=== PATIENT | male | born 2000 | race Caucasian/White ===

== ENCOUNTER 2021-01-09 12:03 | Emergency (ER) | payer BC, SELFPAY ==
--- NOTE | ~2021-01-09 | CT_ITS ---
EXAMINATION: CT abdomen pelvis w con DATE: 01/09/2021 15:38 INDICATION: Appendicitis. Nausea and vomiting. TECHNIQUE: Computed tomography (CT) of the abdomen and pelvis was performed with 100 mL Omnipaque 350 intravenous contrast. Automated exposure control and iterative reconstruction technique were employe d. The dose-length product was 577.96 mGy-cm. COMPARISON: None. FINDINGS: The visualized portions of the lung bases demonstrate minimal atelectasis. No pleural effus ion. The heart size is normal. No pericardial effusion. The liver, gallbladder, spleen, pancreas, adr enal glands, and kidneys are normal. There are no dilated loops of bowel. The appendix is normal. The re are no pathologically enlarged lymph nodes. There is no free intraperitoneal fluid. The bones are unremarkable. IMPRESSION: 1. Normal appendix. Reviewed, dictated and finalized at location A. [employer] IMPRESSION: 1. Normal appendix.
[2021-01-09 12:13] VITALS: BP 150/88; PULSE 87; RESP 17; TEMP 36.7; O2SAT 98
[2021-01-09] MEDS: SODIUM CHLORIDE 0.9% IV 1,000 ML 999 ML IV CONT (13:29)
[2021-01-09] MEDS: FAMOTIDINE 20 MG/2 ML VIAL IV PUSH (13:32)
[2021-01-09 13:46] LABS: Basophils Absolute Auto 0.1 K/mm3 (0.0-0.1); Basophils Percent Auto 0.9 % (0.2-1.2); Eosinophils Absolute Auto 0.1 K/mm3 (0-0.3); Hematocrit 51.4 % (42.0-52.0); Hemoglobin 17.7 g/dL (14.0-18.0); Immature Granulocyte Absolute 0.06 K/mm3 (0.00-0.031); Immature Granulocyte Percent A 0.7 % (0-0.5); Lymphocytes Absolute Auto 1.09 K/mm3 (0.9-3.2); Mean Corpuscular HGB Conc 34.4 g/dl (32-36); Mean Corpuscular Hemoglobin 29.4 pg (26-34); Mean Corpuscular Volume 85.4 fl (80-100); Mean Platelet Volume 10.8 fl (7.4-10.4); Monocytes Absolute Auto 0.8 K/mm3 (0.1-0.6); Monocytes Percent Auto 8.3 % (2.6-8.5); Neutrophils Percent Auto 77.1 % (45.5-73.1); Platelet Count Result 297 k/mm3 (150-375); Red Blood Count 6.02 M/mm3 (4.6-6.20); Red Cell Distribution Width 12.4 % (11.5-14.5); White Blood Count 9.1 K/mm3 (4.5-10.0)
[2021-01-09 14:00] LABS: Alanine Aminotransferase 100 U/L (4-50); Albumin Level 5.2 g/dL (3.5-5.1); Alkaline Phosphatase 105 U/L (38-126); Anion Gap 11 mmol/L (8-16); Aspartate Amino Transferase 59 U/L (17-59); Bilirubin,Total 1.2 mg/dL (0.2-1.3); Blood Urea Nitrogen 16 mg/dL (9-20); Calcium 10.2 mg/dL (8.4-10.2); Carbon Dioxide 27 mmol/L (22-30); Chloride 100 mmol/L (98-107); Estimated CRCL calculation 109 ml/min; Estimated Glomerular Filt Rate > 60; Glucose 86 mg/dL (75-110); Lipase 82 U/L (23-300); Potassium 3.5 mmol/L (3.4-5.0); Sodium 138 mmol/L (137-145)
--- NOTE | 2021-01-09 14:27 | ED.GENADULT ---
HPI - General Adult General Chief complaint: Nausea/Vomiting/Diarrhea Stated complaint: nausea/vomiting Time Seen by Provider: 01/09/21 12:48 Source: patient Mode of arrival: ambulatory Limitations: no limitations History of Present Illness HPI narrative: Patient is a 20-year-old male who presents to emergency department for evaluation of nausea and vomiting for the last 3 days patient notes that whenever he eats he experiences vomiting patient notes that he is able to tolerate liquids at this time patient currently in the room in no distress denying any pain denies similar occurrence in the past patient denies any sick contacts patient Related Data Allergies Allergy/AdvReac Type Severity Reaction Status Date / Time No Known Allergies Allergy Verified 01/09/21 12:04 Review of Systems Review of Systems: All systems reviewed & are unremarkable except as noted in HPI and below PMFSH Social History Social History Gender identity (if verbalized by the patient): Male Exam Narrative: Exam Narrative: GENERAL: Well-appearing, well-nourished, and in no acute distress. HEAD: Normocephalic, atraumatic. EYES: PERRLA and EOMI. ENT: Nares clear, no rhinorrhea or epistaxis. Mucous membranes moist. CHEST: Clear to auscultation. No respiratory distress. No wheezes rales or rhonchi HEART: Regular rate and rhythm. No murmur heard. Normal peripheral pulses. ABDOMEN: Soft, nontender, nondistended EXTREMITIES: Normal range of motion. No edema. SKIN: Warm, dry, no rash. NEURO: No focal deficits. Alert and oriented x3. PSYCH: Normal mood and affect. Course Course Emergency Course: Patient presented with vomiting and nausea for the last several days no high risk changes in the imaging or blood work patient tolerating p.o. intake nontender abdominal exam ABCs and vital signs intact and stable will be discharged with outpatient follow-up patient agrees with this plan Vital Signs Vital signs: Vital Signs Temperature 98.1 F 01/09/21 12:13 Pulse Rate 87 01/09/21 12:13 Respiratory Rate 17 01/09/21 12:13 Blood Pressure 150/88 H 01/09/21 12:13 Pulse Oximetry 98 01/09/21 12:13 Temperature 98.1 F 01/09/21 12:13 Pulse Rate 87 01/09/21 12:13 Respiratory Rate 17 01/09/21 12:13 Blood Pressure 150/88 H 01/09/21 12:13 Pulse Oximetry 98 01/09/21 12:13 Medical Decision Making MDM Narrative Medical decision making narrative: Patient afebrile nontoxic-appearing no distress presented with nausea and vomiting evaluated resting comfortably hydrated medicated tolerating p.o. intake nontender abdominal exam will be discharged home with outpatient follow-up given reasons to return Vital Signs Vital Signs: Vital Signs Temperature 98.1 F 01/09/21 12:13 Pulse Rate 87 01/09/21 12:13 Respiratory Rate 17 01/09/21 12:13 Blood Pressure 150/88 H 01/09/21 12:13 Pulse Oximetry 98 01/09/21 12:13 Temperature 98.1 F 01/09/21 12:13 Pulse Rate 87 01/09/21 12:13 Respiratory Rate 17 01/09/21 12:13 Blood Pressure 150/88 H 01/09/21 12:13 Pulse Oximetry 98 01/09/21 12:13 Lab Data Result diagrams: 01/09/21 13:34 01/09/21 13:34 Labs: Lab Results 01/09/21 01/09/21 Range/Units 13:34 13:34 WBC 9.1 (4.5-10.0) K/mm3 RBC 6.02 (4.6-6.20) M/mm3 Hgb 17.7 (14.0-18.0) g/dL Hct 51.4 (42.0-52.0) % MCV 85.4 (80-100) fl MCH 29.4 (26-34) pg MCHC 34.4 (32-36) g/dl RDW 12.4 (11.5-14.5) % Plt Count 297 (150-375) k/mm3 MPV 10.8 H (7.4-10.4) fl Immature Gran % (Auto) 0.7 H (0-0.5) % Neut % (Auto) 77.1 H (45.5-73.1) % Lymph % (Auto) 12.0 L (18.3-44.2) % Teller % (Auto) 8.3 (2.6-8.5) % Eos % (Auto) 1.0 (0-4.4) % Baso % (Auto) 0.9 (0.2-1.2) % Lymph # (Auto) 1.09 (0.9-3.2) K/mm3 Teller # (Auto) 0.8 H (0.1-0.6) K/mm3 Eos # (Auto) 0.1 (0-0.3) K/mm3 Baso # (Au
[2021-01-09] MEDS: ONDANSETRON INJ 4 MG/2 ML VIAL IV PUSH (14:53)
[2021-01-09 15:05] LABS: Add Urine Microscopic? YES; Appearance Urine Clear (Clear); Bacteria Urine Trace /hpf; Bilirubin Urine Negative (Negative); Blood Urine Negative (Negative); Color Urine Yellow (Yellow); Glucose Urine UA Negative (Negative); Ketones Urine 2+ mg/dL (Negative); Leukocyte Esterase Ur Negative LEU/UL (Negative); Nitrate Urine Negative (Negative); Protein Urine Negative (Negative); RBC Urine 0-2 /hpf (0-2); Urobilinogen Urine Negative mg/dL (<2.0); WBC Urine 0-3 /hpf
[2021-01-09 17:24] VITALS: BP 132/66; PULSE 97; RESP 18; O2SAT 98
== END 2021-01-09 16:48 | disposition home or self-care (01) ==
PROVIDERS: Emergency Medicine Emergency Medical Services; Emergency Provider Emergency Medicine
DX: R11.2 Nausea with vomiting, unspecified (principal)
CPT/HCPCS: 36415; 74177; 80053; 81001; 83690; 85025; 96361; 96374; 96375; 99284; J2405; J7030; Q9967